=== PATIENT | female | born 2000 | race Caucasian/White ===

== ENCOUNTER 2020-01-29 09:52 | Emergency (ER) | payer BC ==
[~2020-01-29] VITALS: Ht 170.2 cm; Wt 131.8 kg
[2020-01-29 09:58] VITALS: TEMP 97.9
[2020-01-29 10:35] LABS: COLLECTION METHOD CLEAN CATCH
[2020-01-29 10:42] LABS: BASO # 0.1 (0.0-0.2); BASO % 0.5 % (0.0-2.0); EOS # 0.4 (0.0-0.7); EOS % 4.3 % (0-4.0); GRAN # 6.3 (1.4-6.5); GRAN % 61.6 % (42.2-75.2); HEMATOCRIT 44.2 % (37.0-47.0); HEMOGLOBIN 14.5 g/dl (12.5-16.0); LYMPH # 2.7 (1.2-3.4); MEAN CELL VOLUME 88 fl (80.0-100.0); MEAN CORPUSCULAR HEMOGLOBIN 29 pg (27.0-31.0); MEAN CORPUSCULAR HGB CONC 33 g/dl (33.0-37.0); MEAN PLATELET VOLUME 10.8 fl (7.4-10.4); MONO # 0.6 (0.1-0.6); MONO % 6.3 % (1.7-9.3); PLATELET COUNT 297 K/mm3 (130-400); RED BLOOD COUNT 5.05 M/mm3 (4.10-5.30); REDCELL DISTRIBUTION WIDTH-CV 13.2 % (11.5-14.5)
[2020-01-29 10:47] LABS: MUCOUS Present /lpf; PH 5 (5-8); URINE APPEARANCE Hazy; URINE BACTERIA Rare /hpf; URINE BILIRUBIN Negative (NEGATIVE); URINE BLOOD 1+ (NEGATIVE); URINE COLOR Yellow; URINE GLUCOSE Negative (NEGATIVE); URINE KETONE Negative (NEGATIVE); URINE LEUKOCYTE ESTERASE 3+ (NEGATIVE); URINE NITRATE Negative (NEGATIVE); URINE PROTEIN(semi-quant) Negative (NEGATIVE); URINE UROBILINOGEN Negative (NEGATIVE)
[2020-01-29 10:55] LABS: ALANINE AMINOTRANSFERASE 35 U/L (4-34); ALBUMIN 4.2 gm/dL (3.5-5.0); ALKALINE PHOSPHATASE 101 U/L (50-136); ANION GAP 6 mmol/L (7-16); AST,SGOT 27 U/L (15-37); BILIRUBIN,TOTAL 0.5 mg/dL (0.0-1.0); BLOOD UREA NITROGEN 13 mg/dL (7-17); CALCIUM 9.4 mg/dL (8.4-10.2); CARBON DIOXIDE 25 mmol/L (22-30); CHLORIDE 108 mmol/L (98-107); CREATININE, serum 0.77 (0.52-1.25); GLUCOSE 148 mg/dL (74-106); LIPASE 56 U/L (23-300); POTASSIUM 4.1 mmol/L (3.4-5.0); SODIUM 138 mmol/L (137-145); TOTAL PROTEIN 7.6 gm/dL (6.4-8.2)
[2020-01-29 11:05] LABS: C-REACTIVE PROTEIN < 0.5 mg/dL (0.0-0.9)
[2020-01-29] MEDS ORDERED: MACROBID 1100 MG/CAP PO (11:21)
[2020-01-29 11:33] VITALS: BP 128/89; PULSE 76
== END 2020-01-29 11:33 | disposition home or self-care (01) ==
LOC: COL.ER 09:52
PROVIDERS: Nurse Practitioner Primary Care
DX: N39.0 Urinary tract infection, site not specified (principal)
CPT/HCPCS: J2405; J7030

== ENCOUNTER → 2020-02-07 | Outpatient (CLI) | payer BC ==
[~2020-02-07] MED LIST: MACROBID 1100 MG/CAP PO
== END ==
LOC: COL.RAD 14:13
DX: K80.20 Calculus of gallbladder without cholecystitis without obstruction (principal); K76.0 Fatty (change of) liver, not elsewhere classified

== ENCOUNTER → 2020-03-12 | Outpatient (CLI) | payer BC | LOC: COL.RAD 11:30 | DX: K80.20 Calculus of gallbladder without cholecystitis without obstruction (principal) | CPT/HCPCS: A9537; J2270 ==

== ENCOUNTER 2021-09-22 22:48 | Emergency (ER) | payer BC ==
[~2021-09-22] VITALS: Ht 170.2 cm; Wt 127.3 kg
[2021-09-22 22:55] VITALS: TEMP 97.5
[2021-09-22 23:28] VITALS: BP 133/89; PULSE 113
== END 2021-09-22 23:32 | disposition home or self-care (01) ==
LOC: COL.ER 22:48
DX: R11.2 Nausea with vomiting, unspecified (principal)